=== PATIENT | male | born 1990 | race American Indian/Alaskan Native ===

== ENCOUNTER 2017-10-13 15:36 | Emergency (ER) | payer MEDICAID ==
[2017-10-13 16:03] VITALS: BP 117/62
--- NOTE | 2017-10-13 16:35 | Emergency Department Report ---
ED Upper Extremity Inj HPI - General Chief Complaint: Extremity Injury, Upper Stated Complaint: RIGHT SIDE SHOULDER PAIN Source: patient Mode of arrival: Ambulatory Limitations: No Limitations - History of Present Illness MD Complaint: Injury to:: right, shoulder -: Sudden Other Extremity Injury: Shoulder: Right Other Injuries: none Handedness: right Place: home Worsens With: movement of extremity Context: other (LIFTING BAG OFF HIS SHOULDER) Associated Symptoms: denies other symptoms. denies: weakness, numbness, neck pain, suspects foreign body, nausea/vomiting, heard/felt popping sensat, other - Related Data Previous Rx's Medication Instructions Recorded Last Taken Type Cyclobenzaprine [Flexeril] 10 mg PO TID PRN #10 tablet 10/13/17 Unknown Rx Naproxen [Naprosyn] 500 mg PO BID PRN #20 tablet 10/13/17 Unknown Rx traMADol [Ultram] 50 mg PO Q6HR PRN #12 tablet 10/13/17 Unknown Rx Allergies Allergy/AdvReac Type Severity Reaction Status Date / Time No Known Allergies Allergy Verified 10/13/17 16:03 ED Review of Systems ROS: Stated complaint: RIGHT SIDE SHOULDER PAIN Other details as noted in HPI Comment: All other systems reviewed and negative Musculoskeletal: other (R SHOULDER PAIN) ED Past Medical Hx - Past Medical History Previous Medical History?: Yes Hx Asthma: Yes - Surgical History Past Surgical History?: No - Family History Family history: no significant - Social History Smoking Status: Never Smoker Substance Use Type: None - Medications Home Medications: Home Medications Medication Instructions Recorded Confirmed Last Taken Type Cyclobenzaprine [Flexeril] 10 mg PO TID PRN #10 tablet 10/13/17 Unknown Rx Naproxen [Naprosyn] 500 mg PO BID PRN #20 tablet 10/13/17 Unknown Rx traMADol [Ultram] 50 mg PO Q6HR PRN #12 tablet 10/13/17 Unknown Rx ED Physical Exam - General Limitations: No Limitations General appearance: alert, in no apparent distress - Head Head exam: Present: atraumatic - Eye Eye exam: Present: normal appearance - ENT ENT exam: Present: mucous membranes moist - Neck Neck exam: Present: normal inspection - Respiratory Respiratory exam: Present: normal lung sounds bilaterally - Cardiovascular Cardiovascular Exam: Present: regular rate - GI/Abdominal GI/Abdominal exam: Present: soft - Expanded Upper Extremity Exam Right Shoulder Exam: Present: full ROM (BUT W PAIN), other (CLAVICAL APPEARS ANT). Absent: tenderness, swelling, abrasion, laceration, ecchymosis, deformity, crepidus, dislocation, erythema, tenderness over AC joint Upper Arm exam: Present: normal inspection - Back Exam Back exam: Present: normal inspection - Neurological Exam Neurological exam: Present: alert, oriented X3 - Psychiatric Psychiatric exam: Present: normal affect, normal mood - Skin Skin exam: Present: warm, dry ED Course Vital Signs 10/13/17 16:01 Temperature 98.8 F Pulse Rate 79 Respiratory 16 Rate Blood Pressure 117/62 - Reevaluation(s) Reevaluation #1: 10/13/17 17:20 TO ER W R SHOULD PAIN SP LIFTING BAG OFF HIS SHOULDER SEVERAL DAYS AGO CONTINUED PAIN W CLINICALLY WHAT LOOKS LIKE AC SEP SEE XRAY SLING MEDICATED WILL HAVE FOLLOW UP WITH ORTHO FOR REEVALUATION N/V INTACT GOOD RADIAL AND ULNAR PULSES ED Medical Decision Making - Radiology Data Radiology results: report reviewed, image reviewed - Medical Decision Making SEE NOTE - Differential Diagnosis RO FX OR AC SEP Critical care attestation.: If time is entered above; I have spent that time in minutes in the direct care of this critically ill patient, excluding procedure time. ED Disposition Clinical Impression: Shoulder pain Disposition: DC- TO HOME OR SELFCARE Is pt being admited?: No Does the pt Need Aspirin: No Condition: Stable Instructions: Shoulder Sprain (ED) Additional Instructions: ALTERNATE ICE/HEAT SLING FOLLOW UP ORTHO FOR EVAL OF SOFT TISSUE LET THEM KNOW YOU WHERE SEEN HERE AND THEY CAN ACCESS YOU XRAY MEDS ORDERED Prescriptions: Cyclobenzaprine [Flexeril] 10 mg PO TID PRN #10 tablet PRN Reason: Muscle Spasm Naproxen [Naprosyn] 500 mg PO BID PRN #20 tablet PRN Reason: Pain traMADol [Ultram] 50 mg PO Q6HR PRN #12 tablet PRN Reason: Pain Referrals: PRIMARY CARE, [Primary Care Provider] - 3-5 Days SARANYA BELLO MD [Staff Physician] - 3-5 Days Time of Disposition: 17:04
--- NOTE | 2017-10-13 16:50 | XRay Report ---
FINAL REPORT EXAM: XR SHOULDER 2+V RT HISTORY: PAIN in the right shoulder TECHNIQUE: AP, Y, and oblique views of the right shoulder PRIORS: None. FINDINGS: There is no evidence of acute fracture or dislocation. Joint spaces are maintained and bony mineralization is normal. Soft tissues are unremarkable. IMPRESSION: No acute abnormality identified in the right shoulder.
[2017-10-13] MEDS ORDERED: NORCO 5/325 PO ONE (16:57)
== END 2017-10-13 17:46 | disposition home or self-care (01) ==
LOC: ED 15:36
DX: M25.511 Pain in right shoulder (principal); J45.909 Unspecified asthma, uncomplicated; X50.0XXA Overexertion from strenuous movement or load, initial encounter; Y93.89 Activity, other specified; Y92.89 Other specified places as the place of occurrence of the external cause; Y99.8 Other external cause status